=== PATIENT | male | born 1995 | race Two or more races ===

== ENCOUNTER 2018-09-30 23:26 | Emergency (ER) | payer SELFPAY ==
[~2018-09-30] VITALS: Ht 167.6 cm; Wt 63.5 kg
[2018-10-01] MEDS ORDERED: TETANUS IMMUNE GLOBULIN 250 UNIT/ML SYRG IM ONE (00:15)
[2018-10-01] MEDS ORDERED: cefTRIAXone 1GM/50ML D5W 50 ML IV ONE (00:15)
[2018-10-01] MEDS ORDERED: SODIUM CHLORIDE 0.9% 1,000 ML IV ONE (00:15)
[2018-10-01] MEDS ORDERED: PROMETHAZINE HCL 25 MG/ML 1ML IV ONE (00:30)
[2018-10-01] MEDS ORDERED: HYDROmorphone HCL 2 MG/ML VL IV ONE (00:30)
[2018-10-01] MEDS ORDERED: BACITRACIN TOP OINT 1 UD PKG TOP ONE ×4 (02:00→02:15)
[2018-10-01] MEDS ORDERED: BACITRACIN INJ 50000 UNIT VIAL TOP ONE (02:00)
[2018-10-01 02:41] VITALS: BP 135/86
== END 2018-10-01 03:13 | disposition home or self-care (01) ==
LOC: ER 23:39
DX: S43.402A Unspecified sprain of left shoulder joint, initial encounter (principal); S39.012A Strain of muscle, fascia and tendon of lower back, initial encounter; S16.1XXA Strain of muscle, fascia and tendon at neck level, initial encounter; F12.10 Cannabis abuse, uncomplicated; V43.52XA Car driver injured in collision with other type car in traffic accident, initial encounter; Y93.89 Activity, other specified; Y99.8 Other external cause status; Y92.410 Unspecified street and highway as the place of occurrence of the external cause
CPT/HCPCS: 70450; 72125; 72131; 73200; 73620; 74176; 96365; 96372; 96375; 99284; J0696; J1170; J1670; J2550; J7030

== ENCOUNTER 2018-10-03 10:27 | Emergency (ER) | payer MEDICAID, OTHER ==
[~2018-10-03] VITALS: Ht 170.2 cm; Wt 74.8 kg
[2018-10-03 12:39] VITALS: BP 136/86
== END 2018-10-03 12:56 | disposition home or self-care (01) ==
LOC: ER 10:39
DX: S50.812D Abrasion of left forearm, subsequent encounter (principal); S50.811D Abrasion of right forearm, subsequent encounter; F17.210 Nicotine dependence, cigarettes, uncomplicated; X58.XXXD Exposure to other specified factors, subsequent encounter

== ENCOUNTER 2019-11-28 21:48 | Emergency (ER) | payer MEDICAID ==
[~2019-11-28] VITALS: Ht 172.7 cm; Wt 77.1 kg
[2019-11-28] MEDS ORDERED: LORazepam 2MG/ML-1ML VIAL IV ONE (22:15)
[2019-11-28 23:14] LABS: Urine Bacteria NONE SEEN /hpf (None Seen); Urine Blood Negative /uL (Negative); Urine Specific Gravity 1.004 (1.001-1.035); Urine WBC 1 /hpf (0 - 3)
[2019-11-28 23:31] LABS: Amphetamine Screen, Urine NEGATIVE (NEGATIVE); Barbiturate Scree,Urine NEGATIVE (NEGATIVE); Cannabinoid Screen, Urine NEGATIVE (NEGATIVE); Cocaine Screen, Urine NEGATIVE (NEGATIVE); Opiate Scree,Urine NEGATIVE (NEGATIVE); Phencyclidine Screen, Urine NEGATIVE (NEGATIVE)
[2019-11-28 23:43] LABS: Benzodiazephine Screen, Urine NEGATIVE (NEGATIVE)
[2019-11-29] MEDS ORDERED: BACITRACIN INJ 50000 UNIT VIAL TOP ONE (01:30)
[2019-11-29] MEDS ORDERED: TETANUS-DIPTH-ACEL PERTUSSIS 0.5ML SYR Tdap IM ONE (01:30)
[2019-11-29 02:00] VITALS: BP 107/65
== END 2019-11-29 02:28 | disposition home or self-care (01) ==
LOC: EDBD 21:48 → ER 21:51
DX: S61.102A Unspecified open wound of left thumb with damage to nail, initial encounter (principal); F10.10 Alcohol abuse, uncomplicated; F41.9 Anxiety disorder, unspecified; F17.210 Nicotine dependence, cigarettes, uncomplicated; Y90.9 Presence of alcohol in blood, level not specified; W26.0XXA Contact with knife, initial encounter; Y93.89 Activity, other specified; Y92.89 Other specified places as the place of occurrence of the external cause; Y99.8 Other external cause status
CPT/HCPCS: 80307; 81001; 90471; 90715; 96374; 99284; J2060

== ENCOUNTER 2019-12-24 21:00 | Emergency (ER) | payer MEDICAID ==
[~2019-12-24] VITALS: Ht 162.6 cm; Wt 102.1 kg
[2019-12-24] MEDS ORDERED: SODIUM CHLORIDE 0.9% 1,000 ML IV ONE (23:15)
[2019-12-24] MEDS ORDERED: THIAMINE 100mg/ml INJ (200mg/2ml VIAL) IV ONE (23:30)
[2019-12-25 06:00] VITALS: BP 110/79
== END 2019-12-24 22:59 | disposition home or self-care (01) ==
LOC: EDBD 21:00 → ER 21:00
DX: F10.129 Alcohol abuse with intoxication, unspecified (principal); M54.2 Cervicalgia; F17.210 Nicotine dependence, cigarettes, uncomplicated; Y90.7 Blood alcohol level of 200-239 mg/100 ml; V89.2XXA Person injured in unspecified motor-vehicle accident, traffic, initial encounter; Y93.I9 Activity, other involving external motion; Y92.89 Other specified places as the place of occurrence of the external cause; Y99.8 Other external cause status
CPT/HCPCS: 36415; 70450; 72125; 80320; 96374; 99285; J3411

== ENCOUNTER 2021-04-03 23:34 | Emergency (ER) | payer MEDICAID, OTHER | END 2021-04-04 01:49 | disposition left against medical advice (07) | LOC: ER 23:34 | DX: Z53.21 Procedure and treatment not carried out due to patient leaving prior to being seen by health care provider ==

== ENCOUNTER 2023-10-26 00:11 | Emergency (ER) | payer OTHER ==
[~2023-10-26] VITALS: Ht 170.2 cm; Wt 74.2 kg
[2023-10-26 00:29] VITALS: BP 124/78; PULSE 104; RESP 18; O2SAT 97
[2023-10-26 01:20] LABS: Basophils # (auto) 0 10 ^3/uL (0-0.2); Basophils % (auto) 0.7 % (0.0-2.0); Eosinophils # (auto) 0.1 10 ^3/uL (0-0.8); Eosinophils % (auto) 1.3 % (0.0-7.0); Hematocrit 44.5 % (41.0-53.0); Lymphocytes % (auto) 37.5 % (10.0-50.0); Mean Corpuscular Hemoglobin 31.1 pg (28.0-32.0); Mean Corpuscular Hgb Conc. 33.8 g/dL (32.0-36.0); Monocytes # (auto) 0.6 10 ^3/uL (0-1.3); Monocytes % (auto) 11.6 % (0.0-12.0); Neutrophils # (auto) 2.6 10 ^3/uL (1.6-8.6); Neutrophils % (auto) 48.9 % (37.0-80.0); Nucleated Red Blood Cells % 0.1 %; Red Blood Cells 4.83 10^6/uL (4.5-5.90); Red Cell Distribution Width 13.5 % (11.8-14.3); White Blood Cell 5.2 10^3/uL (4.4-10.8)
[2023-10-26 01:39] LABS: Alanine Aminotransferase 20 U/L (7-40); Albumin 4.1 g/dL (3.2-4.8); Alkaline Phosphatase 54 U/L (46-116); Anion Gap 2 (5-15); Aspartate Aminotransferase 20 U/L (13-40); BUN/Creatinine Ratio 9.4 (10.0-20.0); Bilirubin, Total 0.8 mg/dL (0.2-1.0); Blood Urea Nitrogen 9 mg/dL (9-23); Calcium 9.4 mg/dL (8.7-10.4); Carbon Dioxide 30 mmol/L (20-30); Chloride 104 mmol/L (98-107); Glucose 110 mg/dL (74-106); Sodium 136 mmol/L (136-145); Total Protein 7.9 g/dL (5.7-8.2)
[2023-10-26 02:17] LABS: Platelet Estimate Decreased
[2023-10-26] MEDS ORDERED: BICT1TAB PO (04:18)
[2023-10-26 04:27] LABS: Urine Bacteria FEW /hpf (None Seen); Urine Blood Negative /uL (Negative); Urine Clarity Clear (Clear); Urine Color Yellow (Yellow); Urine Mucus FEW (None Seen); Urine Protein, UAD 1+ (Negative); Urine Specific Gravity 1.037 (1.001-1.035); Urine Urobilinogen 2 mg/dL (Negative); Urine WBC 2 /hpf (0 - 3); Urine pH 5.5 (5.0-9.0)
== END 2023-10-26 04:54 | disposition home or self-care (01) ==
LOC: ER 00:11
DX: R53.83 Other fatigue (principal); F17.210 Nicotine dependence, cigarettes, uncomplicated
CPT/HCPCS: 36415; 71045; 80053; 81001; 83880; 84484; 85025